=== PATIENT | male | born 1975 | race Two or more races ===

== ENCOUNTER 2023-01-01 11:04 | Emergency (ER) | payer OTHER ==
[~2023-01-01] VITALS: Ht 180.3 cm; Wt 92.5 kg
[2023-01-01] MEDS ORDERED: NORVASC5 MG PO (11:48)
[2023-01-01] MEDS ORDERED: AVALIDE 300-121 EACH PO (11:48)
[2023-01-01 13:10] LABS: HEMATOCRIT 39.7 % (39.0-48.0); HEMOGLOBIN 13.6 g/dL (13-16.00); MEAN CELL VOLUME 90.3 fL (80.0-100.00); MEAN CORPUSCULAR HEMOGLOBIN 30.8 pg (27.00-32.0); MEAN CORPUSCULAR HGB CONC 34.2 g/dl (32.0-36.0); PLATELET COUNT 283 K/uL (150-450); RED CELL DISTRIBUTION WIDTH 13.2 % (11.5-14.5)
== END 2023-01-01 14:15 | disposition home or self-care (01) ==
LOC: ER 11:04
DX: J06.9 Acute upper respiratory infection, unspecified (principal); Z20.822 Contact with and (suspected) exposure to COVID-19